=== PATIENT | male | born 1995 | race Caucasian/White ===

== ENCOUNTER 2019-01-07 10:41 | Emergency (ER) | payer SELFPAY ==
--- NOTE | 2019-01-07 11:14 | ER Document Report ---
ED General - General Chief Complaint: Abdominal Pain Stated Complaint: ABDOMINAL PAIN/VOMITING Time Seen by Provider: 01/07/19 11:03 Primary Care Provider: JAKE GRAY MD [ACTIVE STAFF] - Follow up as needed GRICELDA KO MD [ACTIVE STAFF] - Follow up as needed JULIA BEVERLY MD [ACTIVE STAFF] - Follow up as needed Mode of Arrival: Ambulatory Information source: Patient Notes: This 23-year-old male presents emergency department with complaints of nausea vomiting diarrhea with some abdominal pain for the past couple months that comes and goes. Reports recently symptoms are increasing. Reports last bowel movement prior to arrival was normal. Reports he vomits on a regular basis after he eats. Denies past medical history of chronic abdominal issues such as IBS Crohn's. Patient reports he just moved here from [place] in June. He is wondering if it may be the change in food. He did try eating [employer] up for a while and that seemed to make his symptoms decrease but recently the symptoms have returned. - HPI Onset: Other Onset/Duration: Persistent, Waxing and waning Quality of pain: Achy Pain Level: 0 - No pain with palpation Associated symptoms: Diarrhea, Nausea, Vomiting Exacerbated by: Denies Relieved by: Denies Similar symptoms previously: No Recently seen / treated by doctor: No - Related Data Allergies/Adverse Reactions: No Known Allergies Allergy (Verified 01/07/19 10:43) Past Medical History - General Information source: Patient - Social History Smoking Status: Unknown if Ever Smoked Cigarette use (# per day): No Frequency of alcohol use: None Drug Abuse: None Lives with: Family Family History: None Patient has suicidal ideation: No Patient has homicidal ideation: No GI Medical History: Reports: Hx Gastroesophageal Reflux Disease Surgical Hx: Negative Review of Systems - Review of Systems Notes: Review HPI for review of systems., All other systems negative Physical Exam - Vital signs Vitals: Temp Pulse Resp BP Pulse Ox 98.5 F 98 16 144/73 H 97 01/07/19 10:42 01/07/19 10:42 01/07/19 10:42 01/07/19 10:42 01/07/19 10:42 - General General appearance: Appears well, Alert In distress: None - HEENT Head: Normocephalic Eyes: Normal Conjunctiva: Normal Extraocular movements intact: Yes Neck: Normal, Supple. No: Lymphadenopathy - Respiratory Respiratory status: No respiratory distress Chest status: Nontender Breath sounds: Normal Chest palpation: Normal - Cardiovascular Rhythm: Regular Heart sounds: Normal auscultation Murmur: No - Abdominal Inspection: Normal Distension: No distension Tenderness: Nontender Organomegaly: No organomegaly - Back Back: Normal, Nontender. No: CVA tenderness, Vertebra tenderness - Extremities General upper extremity: Normal ROM, Normal strength General lower extremity: Normal ROM, Normal strength - Neurological Neuro grossly intact: Yes Cognition: Normal Orientation: AAOx4 [place] Coma Scale Eye Opening: Spontaneous [place] Coma Scale Verbal: Oriented [place] Coma Scale Motor: Obeys Commands Lissette Coma Scale Total: 15 Speech: Normal - Psychological Associated symptoms: Normal affect, Normal mood - Skin Skin Temperature: Warm Skin Moisture: Dry Skin Color: Normal Course - Re-evaluation Re-evalutation: 01/07/19 11:13 23-year-old male presents with complaints of abdominal pain and vomiting and diarrhea for the last couple months. Patient just moved here from [place] in June. Could be a change of diet or cholecystitis. Will do labs gallbladder ultrasound. Patient is in no distress at this time declines [facility]. He was instructed on plan of care to include labs urine and ultrasound he verbalized understanding all instructions. 01/07/19 12:12 Labs unremarkable ultrasound negative. Patient instructed on the importance of follow-up with GI. He was given a list of primary care providers in GI. He was advised to monitor his diet avoid fatty spicy foods. Abdomen Ultrasound 01/07/19 11:08 IMPRESSION: NORMAL RIGHT UPPER QUADRANT ULTRASOUND VISUALIZED. 01/07/19 12:33 01/07/19 11:24 01/07/19 11:24 MCV 78 fl (80-97) L 01/07/19 11:24 MCH 26.0 pg (27.0-33.4) L 01/07/19 11:24 MCHC 33.4 g/dL (32.0-36.0) 01/07/19 11:24 RDW 14.4 % (11.5-14.0) H 01/07/19 11:24 Seg Neutrophils % 66.2 % (42-78) 01/07/19 11:24 Chloride 101 mmol/L (98-107) 01/07/19 11:24 Carbon Dioxide 27 mmol/L (22-30) 01/07/19 11:24 Anion Gap 13 (5-19) 01/07/19 11:24 Est GFR ( Amer) > 60 (>60) 01/07/19 11:24 Glucose 102 mg/dL (75-110) 01/07/19 11:24 Calcium 9.8 mg/dL (8.4-10.2) 01/07/19 11:24 Total Bilirubin 0.3 mg/dL (0.2-1.3) 01/07/19 11:24 AST 28 U/L (17-59) 01/07/19 11:24 Alkaline Phosphatase 95 U/L (38-126) 01/07/19 11:24 Total Protein 8.3 g/dL (6.3-8.2) H 01/07/19 11:24 Albumin 4.2 g/dL (3.5-5.0) 01/07/19 11:24 Lipase 53.6 U/L (23-300) 01/07/19 11:24 Urine Color YELLOW 01/07/19 11:24 Urine Appearance CLEAR 01/07/19 11:24 Urine pH 6.0 (5.0-9.0) 01/07/19 11:24 Ur Specific [place] 1.031 01/07/19 11:24 Urine Protein 30 mg/dL (NEGATIVE) H 01/07/19 11:24 Urine Glucose (UA) NEGATIVE mg/dL (NEGATIVE) 01/07/19 11:24 Urine Ketones NEGATIVE mg/dL (NEGATIVE) 01/07/19 11:24 Urine Blood NEGATIVE (NEGATIVE) 01/07/19 11:24 Urine Nitrite NEGATIVE (NEGATIVE) 01/07/19 11:24 Ur Leukocyte Esterase NEGATIVE (NEGATIVE) 01/07/19 11:24 Urine WBC (Auto) 1 /HPF 01/07/19 11:24 Urine RBC (Auto) 4 /HPF 01/07/19 11:24 - Vital Signs Vital signs: Temp Pulse Resp BP Pulse Ox 98.2 F 90 16 117/74 99 01/07/19 12:42 01/07/19 12:42 01/07/19 12:42 01/07/19 12:42 01/07/19 12:42 - Laboratory Result Diagrams: 01/07/19 11:24 01/07/19 11:24 Laboratory results interpreted by me: 01/07/19 01/07/19 01/07/19 11:24 11:24 11:24 Hgb 13.4 L MCV 78 L MCH 26.0 L RDW 14.4 H Total Protein 8.3 H Urine Protein 30 H Urine Urobilinogen 4.0 H Discharge - Discharge Clinical Impression: Vomiting and diarrhea Abdominal pain Qualifiers: Abdominal location: unspecified location Qualified Code(s): R10.9 - Unspecified abdominal pain Condition: Stable Disposition: HOME, SELF-CARE Instructions: Abdominal Pain (OM), Family Physicians / Practices, Gastroenterology Additional Instructions: *You have been evaluated for abdominal pain *Monitor your diet, avoid greasy fatty spicy foods *Follow up with a primary care provider within one week for recheck and referral to GI as indicated *Return to ED for worsening condition, changes, needs *Return to ED if not better in 24 hours Monitor your blood pressure. Your blood pressure was elevated today. This may b e because you were anxious, in pain or because you need medication. It is important to follow up with your primary care provider for full evaluation. Forms: Elevated Blood Pressure Referrals: JAKE GRAY MD [ACTIVE STAFF] - Follow up as needed JULIA BEVERLY MD [ACTIVE STAFF] - Follow up as needed GRICELDA KO MD [ACTIVE STAFF] - Follow up as needed
[2019-01-07 11:57] LABS: ABSOLUTE BASOPHILS # (AUTO) 0.1 10^3/uL (0.0-0.2); ABSOLUTE EOSINOPHILS # (AUTO) 0.1 10^3/uL (0.0-0.6); ABSOLUTE MONOCYTES (AUTO) 0.7 10^3/uL (0.1-1.4); ABSOLUTE NEUT (AUTO) 5.7 10^3/uL (1.7-8.2); BASOPHILS % (AUTO) 0.7 % (0-2); EOSINOPHILS % (AUTO) 1.7 % (0-6); HEMATOCRIT 40.2 % (37.9-51.0); HEMOGLOBIN 13.4 g/dL (13.5-17.0); LYMPHOCYTES % (AUTO) 23.1 % (13-45); MEAN CORPUSCULAR HGB CONC 33.4 g/dL (32.0-36.0); MEAN CORPUSCULAR VOLUME 78 fl (80-97); MONOCYTES % (AUTO) 8.3 % (3-13); PLATELET COUNT 391 10^3/uL (150-450); RED BLOOD COUNT 5.16 10^6/uL (4.35-5.55); RED CELL DISTRIBUTION WIDTH 14.4 % (11.5-14.0); SEGMENTED NEUTROPHILS % (AUTO) 66.2 % (42-78); TOTAL CELLS COUNTED % (AUTO) 100 %; WHITE BLOOD COUNT 8.6 10^3/uL (4.0-10.5)
--- NOTE | 2019-01-07 11:57 | RADIOLOGY REPORT (SQ) ---
EXAM DESCRIPTION: U/S ABDOMEN LIMITED W/O DOP COMPLETED DATE/TIME: 01/07/2019 11:41 am REASON FOR STUDY: abd pain COMPARISON: None. TECHNIQUE: Dynamic and static grayscale images acquired of the abdomen and recorded on PACS. Additio nal selected color Doppler and spectral images recorded. LIMITATIONS: None. FINDINGS: PANCREAS: The pancreas is obscured by overlying bowel gas. LIVER: Normal size Echo texture normal. No focal masses. LIVER VASCULATURE: Normal directional flow of the main portal vein and hepatic veins. GALLBLADDER: No stones. Normal wall thickness. No pericholecystic fluid. ULTRASOUND-DETECTED NUNN'S SIGN: Negative. INTRAHEPATIC DUCTS AND COMMON DUCT: CBD and intrahepatic ducts normal caliber. No filling defects. AORTA: No aneurysm. RIGHT KIDNEY: Normal size. Normal echogenicity. No solid or suspicious masses. No hydronephros is. No calcifications. PERITONEAL AND RIGHT PLEURAL SPACE: No ascites or effusions. OTHER: No other significant findings. IMPRESSION: NORMAL RIGHT UPPER QUADRANT ULTRASOUND VISUALIZED. TECHNICAL DOCUMENTATION: JOB ID: [id number] [employer]- All Rights Reserved Reading location - IP/workstation name: [email or web address]
[2019-01-07 12:08] LABS: APPEARANCE,URINE CLEAR; BILIRUBIN,URINE NEGATIVE (NEGATIVE); COLOR,URINE YELLOW; GLUCOSE, URINE NEGATIVE (NEGATIVE); KETONES,URINE NEGATIVE (NEGATIVE); LEUKOCYTE ESTERASE,URINE NEGATIVE (NEGATIVE); NITRITE,URINE NEGATIVE (NEGATIVE); PROTEIN,URINE 30 mg/dL (NEGATIVE); URINE SPECIFIC GRAVITY 1.031
[2019-01-07 12:17] LABS: ALBUMIN 4.2 g/dL (3.5-5.0); ALKALINE PHOSPHATASE 95 U/L (38-126); ANION GAP 13 (5-19); ASPARTATE AMINO TRANSFERASE 28 U/L (17-59); BILIRUBIN,DIRECT 0.2 mg/dL (0.0-0.4); BILIRUBIN,TOTAL 0.3 mg/dL (0.2-1.3); BLOOD UREA NITROGEN 13 mg/dL (7-20); CALCIUM 9.8 mg/dL (8.4-10.2); CARBON DIOXIDE 27 mmol/L (22-30); CHLORIDE 101 mmol/L (98-107); GLUCOSE 102 mg/dL (75-110); TOTAL PROTEIN 8.3 g/dL (6.3-8.2)
[2019-01-07 12:54] VITALS: BP 117/74
== END 2019-01-07 12:45 | disposition home or self-care (01) ==
LOC: ER 10:41
DX: R10.9 Unspecified abdominal pain (principal); R11.2 Nausea with vomiting, unspecified; R19.7 Diarrhea, unspecified
CPT/HCPCS: 36415; 76705; 80053; 81001; 83690; 85025; 99284

== ENCOUNTER 2019-10-23 17:48 | Emergency (ER) | payer SELFPAY ==
--- NOTE | 2019-10-23 20:30 | ER Document Report ---
ED GI/ - General Chief Complaint: Abdominal Pain Stated Complaint: ABDOMINAL PAIN/NAUSEA/VOMITING Time Seen by Provider: 10/23/19 19:33 Notes: CHIEF COMPLAINT: Intermittent abdominal pain nausea and diarrhea HPI: 24-year-old male who works at [employer] presenting for intermittent abdominal pain nausea with some diarrhea. States it seems to come on in the evening before he goes to bed subjective fevers before he goes to bed. Currently has no abdominal pain but work wanted him to get evaluated. Patient describes the abdominal discomfort as a burning discomfort in the epigastric region ROS: See HPI - all other systems were reviewed and are otherwise negative Constitutional: no fever Eyes: no drainage, no blurred vision ENT: no runny nose, no sore throat Cardiovascular: no chest pain Resp: no SOB, no cough GI: no vomiting, + diarrhea, + abdominal pain : no dysuria Integumentary: no rash Allergy: no hives Musculoskeletal: no extremity pain or swelling Neurological: no numbness/tingling, no weakness MEDICATIONS: I agree with the patient medications as charted by the RN. ALLERGIES: I agree with the allergies as charted by the RN. PAST MEDICAL HISTORY/PAST SURGICAL HISTORY: Reviewed and agree as charted by RN. SOCIAL HISTORY: Reviewed and agree as charted by RN. FAMILY HISTORY: No significant familial comorbid conditions directly related to patient complaint EXAM: Reviewed vital signs as charted by RN. CONSTITUTIONAL: Alert and oriented and responds appropriately to questions. Well-appearing; well-nourished HEAD: Normocephalic; atraumatic EYES: PERRL; Conjunctivae clear, sclerae non-icteric ENT: normal nose; no rhinorrhea; moist mucous membranes; pharynx without lesions noted, no uvula edema or deviation, no tonsillar hypertrophy, phonation normal NECK: Supple without meningismus; non-tender; no cervical lymphadenopathy, no masses CARD: RRR; no murmurs, no clicks, no rubs, no gallops; symmetric distal pulses RESP: Normal chest excursion without splinting or tachypnea; breath sounds clear and equal bilaterally; no wheezes, no rhonchi, no rales, pulse oximetry 98% on room air not hypoxic ABD/GI: Normal bowel sounds; non-distended; soft, non-tender, no rebound, no guarding; no palpable organomegaly or masses. BACK: The back appears normal and is non-tender to palpation, there is no CVA tenderness EXT: Normal ROM in all joints; non-tender to palpation; no cyanosis, no effusions, no edema SKIN: Normal color for age and race; warm; dry; good turgor; no acute lesions noted NEURO: Moves all extremities equally; Motor and sensory function intact PSYCH: The patient's mood and manner are appropriate. Grooming and personal hygiene are appropriate. MDM: 24-year-old male with intermittent epigastric abdominal discomfort with some diarrhea and occasional nausea over the last several days. 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 Will obtain baseline screening labs to ensure no significant abnormalities. He has absolutely no abdominal pain on exam at this time to suggest need for emergent imaging unless he has significant lab abnormalities - Related Data Allergies/Adverse Reactions: No Known Allergies Allergy (Verified 10/23/19 20:38) Past Medical History - Social History Smoking Status: Unknown if Ever Smoked Family History: None GI Medical History: Reports: Hx Gastroesophageal Reflux Disease Physical Exam - Vital signs Vitals: Temp 99.3 F 10/23/19 19:30 Course - Re-evaluation Re-evalutation: 10/23/19 21:52 I discussed evaluation results at length with the patient. Aware he is a person under investigation for COVID-19 self quarantine at home until test results. His lipase was mildly elevated although he does not have significant pain to suggest pancreatitis at this time we did discuss follow-up and recheck of this abnormal lab test within the next week I will refer him to gastroenterology. I will write him for Zofran and Protonix for his stomach. - Vital Signs Vital signs: Temp Pulse Resp BP Pulse Ox 99.3 F 87 18 138/77 H 98 10/23/19 19:32 10/23/19 19:32 10/23/19 19:32 10/23/19 19:32 10/23/19 19:32 - Laboratory Result Diagrams: 10/23/19 21:04 10/23/19 21:04 Laboratory results interpreted by me: 10/23/19 10/23/19 21:04 21:04 Hgb 12.7 L Hct 37.7 L RDW 14.1 H [place] % (Auto) 16.3 H Sodium 135.8 L Glucose 116 H Lipase 428.2 H Discharge - Discharge Clinical Impression: Abdominal pain, acute, epigastric, Person under investigation for COVID-19 Condition: Stable Disposition: HOME, SELF-CARE Additional Instructions: Take Zofran for nausea, Protonix to help your stomach heal. You are considered a person under investigation for COVID-19 at this time, self quarantine at home until you have a negative test result this usually takes for up to 48 hours and you will be notified by someone from the hospital. It was noted today during your examination that your lipase was mildly elevated this can happen from a number of different factors. You should have this rechecked to make sure it returns to normal within a week or 2. You are being given a referral to gastroenterology today for further follow-up and evaluation return for any concerns Prescriptions: Pantoprazole Sodium [Protonix [address] Tablet] 20 mg PO DAILY #30 tablet. Ondansetron [Zofran Odt 4 mg Tablet] 1 - 2 tab PO Q4H PRN #15 tab.rapdis PRN Reason: For Nausea/Vomiting Referrals: JULIA BEVERLY MD [ACTIVE STAFF] - Follow up as needed
[2019-10-23 21:21] LABS: ABSOLUTE LYMPHOCYTES (AUTO) 1.4 10^3/uL (0.5-4.7); ABSOLUTE NEUT (AUTO) 3.9 10^3/uL (1.7-8.2); BASOPHILS % (AUTO) 0.5 % (0-2); EOSINOPHILS % (AUTO) 0.7 % (0-6); HEMATOCRIT 37.7 % (37.9-51.0); HEMOGLOBIN 12.7 g/dL (13.5-17.0); LYMPHOCYTES % (AUTO) 22.1 % (13-45); MEAN CORPUSCULAR HEMOGLOBIN 27.6 pg (27.0-33.4); MEAN CORPUSCULAR HGB CONC 33.7 g/dL (32.0-36.0); MEAN CORPUSCULAR VOLUME 82 fl (80-97); MONOCYTES % (AUTO) 16.3 % (3-13); PLATELET COUNT 402 10^3/uL (150-450); RED BLOOD COUNT 4.61 10^6/uL (4.35-5.55); RED CELL DISTRIBUTION WIDTH 14.1 % (11.5-14.0); SEGMENTED NEUTROPHILS % (AUTO) 60.4 % (42-78); TOTAL CELLS COUNTED % (AUTO) 100 %; WHITE BLOOD COUNT 6.4 10^3/uL (4.0-10.5)
[2019-10-23 21:34] LABS: ALBUMIN 3.9 g/dL (3.5-5.0); ALKALINE PHOSPHATASE 89 U/L (38-126); ANION GAP 10 (5-19); ASPARTATE AMINO TRANSFERASE 19 U/L (17-59); BILIRUBIN,TOTAL 0.3 mg/dL (0.2-1.3); BLOOD UREA NITROGEN 8 mg/dL (7-20); CALCIUM 9.5 mg/dL (8.4-10.2); CARBON DIOXIDE 27 mmol/L (22-30); CHLORIDE 99 mmol/L (98-107); GLUCOSE 116 mg/dL (75-110); POTASSIUM 3.9 mmol/L (3.6-5.0); TOTAL PROTEIN 7.7 g/dL (6.3-8.2)
[2019-10-23 22:02] LABS: APPEARANCE,URINE SLIGHTLY-CLOUDY; BILIRUBIN,URINE NEGATIVE (NEGATIVE); COLOR,URINE YELLOW; GLUCOSE, URINE NEGATIVE (NEGATIVE); KETONES,URINE NEGATIVE (NEGATIVE); LEUKOCYTE ESTERASE,URINE NEGATIVE (NEGATIVE); NITRITE,URINE NEGATIVE (NEGATIVE); PROTEIN,URINE NEGATIVE (NEGATIVE); URINE SPECIFIC GRAVITY 1.027; UROBILINOGEN,URINE NEGATIVE mg/dL (<2.0)
[2019-10-23 22:10] VITALS: BP 156/80
== END 2019-10-23 22:12 | disposition home or self-care (01) ==
LOC: ER 17:48
DX: R10.13 Epigastric pain (principal); R19.7 Diarrhea, unspecified; R11.0 Nausea; Z20.828 Contact with and (suspected) exposure to other viral communicable diseases; Z87.19 Personal history of other diseases of the digestive system
CPT/HCPCS: 99284; 36415; 83690; 85025; 87635; 80053; 81001; C9803